=== PATIENT | male | born 1990 | race Two or more races ===

== ENCOUNTER 2018-02-09 09:08 | Emergency (ER) | payer OTHER ==
[2018-02-09 09:15] VITALS: BP 125/73; PULSE 105; TEMP 98.2; BMI 19.3
[2018-02-09] MEDS ORDERED: IBUPROFEN 600 MG TABLET (FP) PO ONE ×2 (09:29→09:34)
--- NOTE | 2018-02-09 10:17 | PDOC ---
History of Present Illness - General Chief Complaint: Injury Stated Complaint: ANKLE PAIN Time Seen by Provider: 02/09/18 09:25 History Source: Patient - History of Present Illness Initial Comments: 02/09/18 10:10 c/o left knee pain for 2 days denies trauma. Pt is mentally challenged cared for by mother, pt denies fall, ambulates with assist at baseline. no obvious trauma noted. no fever no chills, skin intact. Severity: Yes: mild Past History - Past Medical History Allergies/Adverse Reactions: Allergies Allergy/AdvReac Type Severity Reaction Status Date / Time No Known Allergies Allergy Verified 01/08/16 07:58 Home Medications: Ambulatory Orders Azithromycin [Zithromax 250mg Tablets -] 250 mg PO UTDICT #6 tab 01/08/16 COPD: No Other medical history: CEREBRAL PALSY/ HEARING EMPAIRED - Immunization History Immunization Up to Date: Yes - Suicide/Smoking/Psychosocial Hx Smoking History: Never smoked Information on smoking cessation initiated: No Hx Alcohol Use: No Drug/Substance Use Hx: No Substance Use Type: None *Physical Exam - Vital Signs Last Vital Signs Temp Pulse Resp BP Pulse Ox 98.2 F 105 H 16 125/73 100 02/09/18 09:12 02/09/18 09:12 02/09/18 09:12 02/09/18 09:12 02/09/18 09:12 - Physical Exam General Appearance: Yes: Nourished, Appropriately Dressed HEENT: positive: EOMI, SHANAE Neck: positive: Supple. negative: Tender Respiratory/Chest: positive: Lungs Clear, Normal Breath Sounds Cardiovascular: positive: Regular Rhythm, Regular Rate Extremity: positive: Normal Capillary Refill, Normal Inspection, Normal Range of Motion. negative: Tender, Pedal Edema, Swelling, Calf Tenderness, Erythema, Inflammation Integumentary: positive: Normal Color, Dry, Warm Neurologic: positive: Alert, Normal Mood/Affect, Normal Response Moderate Sedation - Procedure Monitoring Vital Signs: Procedure Monitoring Vital Signs Temperature 98.2 F 02/09/18 09:12 Pulse Rate 105 H 02/09/18 09:12 Respiratory Rate 16 02/09/18 09:12 Blood Pressure 125/73 02/09/18 09:12 O2 Sat by Pulse Oximetry (%) 100 02/09/18 09:12 ED Treatment Course - RADIOLOGY Radiology Studies Ordered: Category Date Time Status ANKLE-LEFT [RAD] Stat Radiology 11/29/18 09:26 Taken - Medications Given in the ED: ED Medications Discontinued Medications Generic Name Dose Route Start Last Admin Trade Name Talia PRN Reason Stop Dose Admin Ibuprofen 600 mg 02/09/18 09:29 02/09/18 09:35 Motrin - PO 02/09/18 09:30 600 mg ONCE ONE Administration Medical Decision Making - Medical Decision Making 02/09/18 10:17 pt c/o left knee pain for 2 days mom states, pt denies injury none witnessed or reported by mom pt ambulating with limp states mom, uses assistance at baseline *DC/Admit/Observation/Transfer Diagnosis at time of Disposition: Knee pain, acute Qualifiers: Laterality: left Qualified Code(s): M25.562 - Pain in left knee - Discharge Dispostion Disposition: HOME Condition at time of disposition: Good - Referrals Referrals: Jordana Junior [Primary Care Provider] - Higinio Iniguez MD [Staff Physician] - - Patient Instructions Additional Instructions: follow with your orthopedist or with for follow up apply warm compresses to the area every 3hrs for 15 minutes give ibuprofen 600mg every 8hrs for pain as needed - Post Discharge Activity
== END 2018-02-09 10:44 | disposition home or self-care (01) ==
LOC: JERFT 09:08
DX: M25.562 Pain in left knee (principal); G80.9 Cerebral palsy, unspecified; H91.8X9 Other specified hearing loss, unspecified ear; R26.89 Other abnormalities of gait and mobility; Z99.89 Dependence on other enabling machines and devices
CPT/HCPCS: 73562-TC-LT-FY; 73610-TC-LT-FY; 99281-25